=== PATIENT | male | born 1990 | race African-American/Black ===

== ENCOUNTER 2016-06-17 14:14 | Emergency (ER) | payer OTHER ==
[~2016-06-17] VITALS: Ht 175.3 cm; Wt 79.4 kg
[2016-06-17] MEDS ORDERED: CLINDAMYCIN 150 MG CAP PO ONE (16:15)
[2016-06-17] MEDS ORDERED: IBUPROFEN 800 MG TAB PO ONE (16:15)
[2016-06-17] MEDS ORDERED: CLIN1CAP5 PO (16:22)
[2016-06-17] MEDS ORDERED: IBUP80TA PO (16:23)
[2016-06-17 16:38] VITALS: BP 141/90
== END 2016-06-17 16:48 | disposition home or self-care (01) ==
LOC: M ED 15:44
DX: L08.9 Local infection of the skin and subcutaneous tissue, unspecified (principal)

== ENCOUNTER 2016-10-17 18:18 | Emergency (ER) | payer OTHER ==
[~2016-10-17] VITALS: Ht 175.3 cm; Wt 78.3 kg
[~2016-10-17 18:18] MED LIST: CLIN150C14 PO; IBUP80TA PO
[2016-10-17] MEDS ORDERED: BENA25CA4 PO (18:28)
[2016-10-17] MEDS ORDERED: PERCOCET 5MG/325MG TAB PO ONE (19:45)
[2016-10-17] MEDS ORDERED: IBUPROFEN 600 MG TAB PO ONE (19:45)
[2016-10-17] MEDS ORDERED: PERC5TAB12 PO (20:22)
[2016-10-17] MEDS ORDERED: IBUP-1022 PO (20:22)
[2016-10-17 20:50] VITALS: BP 148/89
[2016-10-17] MEDS ORDERED: OXYCODONE/APAP 5MG/325MG(BULK FOR ED) 1 TABLET PO ONE (21:00)
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
== END 2016-10-17 20:58 | disposition home or self-care (01) ==
LOC: M ED 18:18
DX: S50.11XA Contusion of right forearm, initial encounter (principal); S70.02XA Contusion of left hip, initial encounter; Y08.02XA Assault by strike by baseball bat, initial encounter; Y92.89 Other specified places as the place of occurrence of the external cause; Y93.89 Activity, other specified; Y99.9 Unspecified external cause status